=== PATIENT | male | born 1995 | race Caucasian/White ===

== ENCOUNTER 2017-09-18 02:07 | Emergency (ER) | payer OTHER ==
[2017-09-18 02:26] VITALS: RESP 16
--- NOTE | 2017-09-18 03:07 | EDPHY ---
H & P Stated Complaint: abd pain w/ N/V Time Seen by Provider: 09/18/17 02:56 HPI/ROS: Chief Complaint: Abdominal pain HPI: 22-year-old male been having worsening abdominal pain for the last 3 hours. It is in the lower abdomen, bilaterally. He has vomited twice. Not had any diarrhea. Has had some associated chills. At worst is an 8/10. Now 4/ 10. It was worse with the bumps in the car ride here. He did state that earlier in the evening he did eat a goes pepper and had some indigestion from that. He did take Zantac. After that he did not have any significant pain. No fevers or chills. No abdominal surgeries in the past. He does admit to drinking 4 beers between 6 and 9 o'clock this evening. ROS: 10 point Review of Systems is negative except as noted in the HPI. PMH: Denies Social History: No smoking, occasional alcohol, occasional marijuana Family History: non-contributory Physical Exam: Gen: Awake, Alert, No Distress HEENT: Nose: no rhinorrhea Eyes: PERRLA, EOMI Mouth: Moist mucosa Neck: Supple, no JVD Chest: nontender, lungs clear to auscultation Heart: S1, S2 normal, no murmur Abd: Soft, he has tenderness in the right lower quadrant over McBurney's point, no rebound or guarding Back: no CVA tenderness, no midline tenderness Ext: no edema, non-tender Skin: no rash Neuro: CN II-XII intact, Sensation grossly intact, Strength 5/5 in bilateral upper and lower extremities - Personal History Current Tetanus/Diphtheria Vaccine: Yes Current Tetanus Diphtheria and Acellular Pertussis (TDAP): Yes - Medical/Surgical History Hx Asthma: No Hx Chronic Respiratory Disease: No Hx Diabetes: No Hx Cardiac Disease: No Hx Renal Disease: No Hx Cirrhosis: No Hx Alcoholism: No Hx HIV/AIDS: No Hx Splenectomy or Spleen Trauma: No - Social History Smoking Status: Never smoked Constitutional: Initial Vital Signs Temperature (C) 36.9 C 09/18/17 02:24 Heart Rate 75 09/18/17 02:24 Respiratory Rate 16 09/18/17 02:24 Blood Pressure 142/87 H 09/18/17 02:24 O2 Sat (%) 100 09/18/17 02:24 Allergies/Adverse Reactions: calcium carbonate [From Viactiv] Allergy (Verified 09/18/17 02:26) cholecalciferol (vitamin D3) [From Viactiv] Allergy (Verified 09/18/17 02:26) phytonadione (vitamin K1) [From Viactiv] Allergy (Verified 09/18/17 02:26) Medical Decision Making - Diagnostics Imaging Results: CT scan abdomen pelvis is negative. He has a normal appendix per Dr. Schneider. Imaging: Discussed imaging studies w/ call center recruiter Radiologist ED Course/Re-evaluation: 22-year-old male with right lower quadrant pain after eating a ghost pepper this evening. CT scan is negative. Laboratory evaluations are unremarkable. Will discharge him with follow-up as an outpatient, return for worsening. - Data Points Laboratory Results: Laboratory Results 09/18/17 02:53 09/18/17 02:53 09/18/17 09/18/17 02:53 02:53 WBC 6.89 10^3/uL 10^3/uL (3.80-9.50) RBC 4.73 10^6/uL 10^6/uL (4.40-6.38) Hgb 15.7 g/dL g/dL (13.7-17.5) Hct 43.2 % % (40.0-51.0) MCV 91.3 fL fL (81.5-99.8) MCH 33.2 pg pg (27.9-34.1) MCHC 36.3 g/dL g/dL (32.4-36.7) RDW 11.9 % % (11.5-15.2) Plt Count 241 10^3/uL 10^3/uL (150-400) MPV 9.6 fL fL (8.7-11.7) Neut % (Auto) 68.1 % % (39.3-74.2) Lymph % (Auto) 22.6 % % (15.0-45.0) [place] % (Auto) 7.0 % % (4.5-13.0) Eos % (Auto) 0.7 % % (0.6-7.6) Baso % (Auto) 0.4 % % (0.3-1.7) Nucleat RBC Rel Count 0.0 % % (0.0-0.2) Absolute Neuts (auto) 4.69 10^3/uL 10^3/uL (1.70-6.50) Absolute Lymphs (auto) 1.56 10^3/uL 10^3/uL (1.00-3.00) Absolute Monos (auto) 0.48 10^3/uL 10^3/uL (0.30-0.80) Absolute Eos (auto) 0.05 10^3/uL 10^3/uL (0.03-0.40) Absolute Basos (auto) 0.03 10^3/uL 10^3/uL (0.02-0.10) Absolute Nucleated RBC 0.00 10^3/uL 10^3/uL (0-0.01) Immature Gran % 1.2 % H % (0.0-1.1) Immature Gran # 0.08 10^3/uL 10^3/uL (0.00-0.10) Sodium 142 mEq/L mEq/L (134-144) Potassium 3.9 mEq/L mEq/L (3.5-5.2) Chloride 101 mEq/L mEq/L (97-110) Carbon Dioxide 22 mEq/l mEq/l (22-31) Anion Gap 19 mEq/L H mEq/L (8-16) BUN 14 mg/dL mg/dL (7-23) Creatinine 1.0 mg/dL mg/dL (0.7-1.3) Estimated GFR > 60 Glucose 157 mg/dL H mg/dL (70-100) Calcium 9.8 mg/dL mg/dL (8.5-10.4) Total Bilirubin 0.7 mg/dL mg/dL (0.1-1.4) AST 45 IU/L IU/L (17-59) ALT 81 IU/L H IU/L (21-72) Alkaline Phosphatase 87 IU/L IU/L (38-126) Total Protein 7.7 g/dL g/dL (6.3-8.2) Albumin 4.8 g/dL g/dL (3.5-5.0) Lipase 154 IU/L IU/L (23-300) Medications Given: Discontinued Medications Fentanyl (Sublimaze) 50 mcg IVP EDNOW ONE Stop: 09/18/17 03:08 Last Admin: 09/18/17 03:12 Dose: 50 mcg Ondansetron HCl (Zofran) 4 mg IVP EDNOW ONE Stop: 09/18/17 03:08 Last Admin: 09/18/17 03:12 Dose: 4 mg Departure - Departure Disposition: Home, Routine, Self-Care Clinical Impression: Abdominal pain Condition: Good Instructions: Abdominal Pain (ED) Additional Instructions: Follow up with primary care physician in 3-4 days if symptoms have not resolved. Return to the emergency department for increasing abdominal pain, uncontrolled nausea or vomiting, fevers, chills, or any other concerns.
[2017-09-18] MEDS: ONDANSETRON 4 MG/2 ML VIAL IVP ONE (03:12)
[2017-09-18] MEDS: fentaNYL 100 MCG/2 ML INJ IVP ONE (03:12)
[2017-09-18 03:26] LABS: % IMMATURE GRANULYOCYTES 1.2 % (0.0-1.1); ABSOLUTE IMMATURE GRANULOCYTES 0.08 10^3/uL (0.00-0.10); ADD DIFF? NO; ADD MORPH? NO; ADD SCAN? NO; ATYPICAL LYMPHOCYTE FLAG 20 (0-99); FRAGMENT RBC FLAG 0 (0-99); HEMATOCRIT 43.2 % (40.0-51.0); HEMOGLOBIN 15.7 g/dL (13.7-17.5); LEFT SHIFT FLG 10 (0-99); LIPEMIA HEMOLYSIS FLAG 90 (0-99); MEAN CELL HEMOGLOBIN 33.2 pg (27.9-34.1); MEAN CELL HEMOGLOBIN CONCENTR. 36.3 g/dL (32.4-36.7); MEAN CELL VOLUME 91.3 fL (81.5-99.8); MEAN PLATELET VOLUME 9.6 fL (8.7-11.7); PLATELET CLUMPS FLAG 0 (0-99); PLATELET COUNT 241 10^3/uL (150-400); RED BLOOD CELL COUNT 4.73 10^6/uL (4.40-6.38); RED CELL DISTRIBUTION WIDTH 11.9 % (11.5-15.2)
[2017-09-18 03:30] LABS: ALANINE AMINOTRANSFERASE 81 IU/L (21-72); ALBUMIN 4.8 g/dL (3.5-5.0); ALKALINE PHOSPHATASE 87 IU/L (38-126); ANION GAP 19 mEq/L (8-16); ASPARTATE AMINOTRANSFERASE 45 IU/L (17-59); BILIRUBIN,TOTAL 0.7 mg/dL (0.1-1.4); CALCIUM 9.8 mg/dL (8.5-10.4); CARBON DIOXIDE 22 mEq/l (22-31); CHLORIDE 101 mEq/L (97-110); GLOMERULAR FILTRATION RATE > 60; GLUCOSE 157 mg/dL (70-100); POTASSIUM 3.9 mEq/L (3.5-5.2); SODIUM 142 mEq/L (134-144); TOTAL PROTEIN 7.7 g/dL (6.3-8.2)
[2017-09-18] MEDS ORDERED: IOPAMIDOL (ISOVUE-300) 100 ML BTL ONE (03:39)
[2017-09-18 04:30] VITALS: BP 130/74; PULSE 82; TEMP 98.2; O2SAT 96
== END 2017-09-18 04:28 | disposition home or self-care (01) ==
DX: R10.31 Right lower quadrant pain (principal)
CPT/HCPCS: 96374; J2405; J3010; Q9967